=== PATIENT | male | born 1935 | race Caucasian/White ===

== ENCOUNTER 2025-06-03 18:05 | Emergency (ER) | payer MEDICARE, BC ==
[2025-06-03 18:44] LABS: BASOPHILS ABSOLUTE AUTO 0.04 K/uL (0.00-0.20); BASOPHILS PERCENT AUTO 0.8 % (0.0-1.0); EOSINOPHILS ABSOLUTE AUTO 0.04 K/uL (0.00-0.45); EOSINOPHILS PERCENT AUTO 0.8 % (0.0-6.0); IMMATURE GRAN ABSOLUTE AUTO 0.01 K/uL (0.00-0.05); IMMATURE GRAN PERCENT AUTO 0.2 % (0.0-0.4); LYMPHOCYTES ABSOLUTE AUTO 0.99 K/uL (1.00-4.80); LYMPHOCYTES PERCENT AUTO 19.8 % (24.0-44.0); MEAN PLATELET VOLUME 11.5 fL (9.4-12.4); MONOCYTES ABSOLUTE AUTO 0.69 K/uL (0.00-0.80); MONOCYTES PERCENT AUTO 13.8 % (0.0-8.0); NEUTROPHILS ABSOLUTE AUTO 3.24 K/uL (1.80-7.70); NEUTROPHILS PERCENT AUTO 64.6 % (41.0-71.0); NRBC ABSOLUTE 0.00 K/uL (0.00-0.02); NRBC PERCENT 0.0 /100WBC (0.0-0.2); PLATELET COUNT,PLT 203 K/uL (150-400); RED BLOOD CELL COUNT 4.20 M/uL (4.52-5.90); WHITE BLOOD CELL COUNT,WBC 5.01 K/uL (3.9-11.3)
[2025-06-03 19:08] LABS: INR 2.34 (0.86-1.11); PTT,PARTIAL THROMBOPLSTIN TIME 36.3 SEC (23.9-30.7)
[2025-06-03 19:24] LABS: A/G RATIO 1.2 (0.9-1.6); ALANINE AMINOTRANSFERASE,ALT 26 IU/L (14-63); ASPARTATE AMNIOTRANSFERASE,AST 34 IU/L (15-37); BILIRUBIN TOTAL 0.7 mg/dL (0.2-1.0); BLOOD UREA NITROGEN,BUN 27 mg/dL (7.0-18.0); CARBON DIOXIDE,CO2 23.9 mmol/L (21.0-32.0); CHLORIDE,CL 105 mmol/L (98-107); CREATININE 1.3 mg/dL (0.8-1.3); GLUCOSE RANDOM 127 mg/dL (74-106); POTASSIUM,K 4.2 mmol/L (3.5-5.1); PROTEIN TOTAL,TP 6.7 g/dL (6.4-8.2); SODIUM,NA 139 mmol/L (136-148)
[2025-06-03 19:25] LABS: ESTIMATED GFR 53 mL/min (>60)
== END 2025-06-03 20:25 | disposition home or self-care (01) ==
LOC: MW.ED 18:05
DX: R04.0 Epistaxis (principal); I48.91 Unspecified atrial fibrillation; Z79.899 Other long term (current) drug therapy; Z79.01 Long term (current) use of anticoagulants
CPT/HCPCS: 36415; 80053; 85025; 85610; 85730; 99283; A9270

== ENCOUNTER 2025-07-25 20:06 | Emergency (ER) | payer MEDICARE, BC | END 2025-07-25 21:44 | disposition home or self-care (01) | LOC: MW.ED 20:06 | DX: R04.0 Epistaxis (principal); I48.91 Unspecified atrial fibrillation; I10 Essential (primary) hypertension; Z79.899 Other long term (current) drug therapy; Z79.01 Long term (current) use of anticoagulants | CPT/HCPCS: 99283; A9270 ==